=== PATIENT | male | born 1970 | race Two or more races ===

== ENCOUNTER 2023-04-07 10:05 | Inpatient (IN) | payer OTHER ==
[~2023-04-07] VITALS: Ht 175.3 cm; Wt 95.7 kg
== END 2023-04-18 11:24 | disposition home or self-care (01) | DRG 330 ==
LOC: SURG 04-13 07:20 → O/R 04-13 07:20 → SURG 04-13 09:15 → O/R 04-13 11:59 → SURG 04-13 18:55 → SURH 04-17 13:09
PROVIDERS: ADMIT Colon & Rectal Surgery; ATTEND Colon & Rectal Surgery
PROC: 0DTP4ZZ Resection of Rectum, Percutaneous Endoscopic Approach (ICD-10-PCS; 2023-04-13)
PROC: 07BB4ZZ Excision of Mesenteric Lymphatic, Percutaneous Endoscopic Approach (ICD-10-PCS; 2023-04-13)
PROC: 07BC4ZZ Excision of Pelvis Lymphatic, Percutaneous Endoscopic Approach (ICD-10-PCS; 2023-04-13)
PROC: 8E0W4CZ Robotic Assisted Procedure of Trunk Region, Percutaneous Endoscopic Approach (ICD-10-PCS; 2023-04-13)
PROC: 0D1B4Z4 Bypass Ileum to Cutaneous, Percutaneous Endoscopic Approach (ICD-10-PCS; principal; 2023-04-13 09:15)
DX: C20 Malignant neoplasm of rectum (principal); K92.1 Melena
CPT/HCPCS: 45397; 38570; 38571; 44187; S2900

== ENCOUNTER 2023-04-19 14:52 | Inpatient (IN) | payer OTHER ==
[~2023-04-19] VITALS: Ht 175.3 cm; Wt 95.3 kg
[2023-04-23] MEDS ORDERED: ZOFRAN8 MG PO (06:11)
[2023-04-23] MEDS ORDERED: PERCOCET 5-3251 EACH PO (06:11)
== END 2023-04-23 13:23 | disposition home or self-care (01) | DRG 641 ==
LOC: ER 14:52 → SURH 20:03
PROVIDERS: ADMIT Colon & Rectal Surgery; ATTEND Colon & Rectal Surgery
PROC: BW21YZZ Computerized Tomography (CT Scan) of Abdomen and Pelvis using Other Contrast (ICD-10-PCS; principal; 2023-04-19)
PROC: BW28ZZZ Computerized Tomography (CT Scan) of Head (ICD-10-PCS; 2023-04-19)
DX: E87.1 Hypo-osmolality and hyponatremia (principal); Z93.2 Ileostomy status; E86.0 Dehydration; N28.9 Disorder of kidney and ureter, unspecified

== ENCOUNTER 2023-08-26 07:13 | Outpatient (CLI) | payer OTHER ==
[~2023-08-26 07:13] MED LIST: PERCOCET 5-3251 EACH PO; ZOFRAN8 MG PO
== END 2023-08-26 07:29 | disposition home or self-care (01) ==
LOC: RX STUDY 07:13
PROVIDERS: ATTEND Colon & Rectal Surgery
DX: C20 Malignant neoplasm of rectum (principal)

== ENCOUNTER → 2023-11-16 | Day surgery (SDC) | payer OTHER | END | disposition home or self-care (01) | LOC: ADM 11-05 14:00 → AMB-ENDOS 06:00 | PROVIDERS: ATTEND Colon & Rectal Surgery | DX: C20 Malignant neoplasm of rectum (principal); Z98.0 Intestinal bypass and anastomosis status; Z20.822 Contact with and (suspected) exposure to COVID-19 ==

== ENCOUNTER 2023-12-29 10:45 | Inpatient (IN) | payer OTHER ==
[~2023-12-29] VITALS: Ht 175.3 cm; Wt 98.9 kg
[2024-01-05] MEDS ORDERED: CEFTRIAXONE SODIUM 2,000 MG VIAL ONE (11:58)
[2024-01-05] MEDS ORDERED: METRONIDAZOLE/SODIUM CHLORIDE 500 MG/100 ML PIGGYBACK IV ONE ×2 (11:58→17:45)
[2024-01-05] MEDS ORDERED: CEFTRIAXONE SODIUM 2,000 MG VIAL IV ONE (17:45)
[2024-01-05] MEDS ORDERED: RINGERS SOLUTION,LACTATED 1,000 ML IV SCH (18:30)
[2024-01-05] MEDS ORDERED: ONDANSETRON HCL 2 MG/ML VIAL IV PRN (18:30)
[2024-01-05] MEDS ORDERED: OxyCODONE HCL 5 MG TABLET (ROXICODONE) PO PRN (18:30)
[2024-01-05] MEDS ORDERED: INSULIN LISPRO 1,000 UNIT/10 ML UNITS SUBCUTANEO PRN (18:30)
[2024-01-05] MEDS ORDERED: MORPHINE SULFATE 4 MG/ML CARTRIDGE IV PRN (18:30)
[2024-01-05] MEDS ORDERED: DEXTROSE 50 % IN WATER 0.5 G/ML DISP.SYRIN IV PRN (18:30)
[2024-01-05] MEDS ORDERED: ENALAPRILAT DIHYDRATE 2.5 MG/2 ML VIAL IV ONE ×2 (18:42→18:45)
[2024-01-05] MEDS ORDERED: ENALAPRILAT DIHYDRATE 1.25 MG/ML VIAL IV ONE (18:43)
[2024-01-05] MEDS ORDERED: ACETAMINOPHEN 500 MG GEL..CAP PO SCH (20:00)
[2024-01-05] MEDS ORDERED: FAMOTIDINE/PF 20 MG/2 ML VIAL IV PUSH SCH (21:00)
[2024-01-05] MEDS ORDERED: SIMETHICONE 125 MG CAPSULE PO SCH (21:00)
[2024-01-05 21:52] LABS: HEMATOCRIT 43.8 % (39.0-48.0); HEMOGLOBIN 15.1 g/dL (13-16.00); MEAN CELL VOLUME 80.4 fL (80.0-100.00); MEAN CORPUSCULAR HEMOGLOBIN 27.7 pg (27.00-32.0); MEAN CORPUSCULAR HGB CONC 34.4 g/dl (32.0-36.0); PLATELET COUNT 242 K/uL (150-450); RED BLOOD COUNT 5.45 M/uL (4.00-6.00); RED CELL DISTRIBUTION WIDTH 14.2 % (11.5-14.5)
[2024-01-06] MEDS ORDERED: GABAPENTIN 300 MG CAPSULE PO ONE (00:23)
[2024-01-06] MEDS ORDERED: GABAPENTIN 300 MG CAPSULE PO SCH (01:00)
[2024-01-06] MEDS ORDERED: METOCLOPRAMIDE HCL 5 MG/ML VIAL IV SCH (01:00)
[2024-01-06] MEDS ORDERED: ACETAMINOPHEN 500 MG GEL..CAP PO ONE (01:19)
[2024-01-06] MEDS ORDERED: ENALAPRILAT DIHYDRATE 1.25 MG/ML VIAL IV ONE (01:50)
[2024-01-06] MEDS ORDERED: CELECOXIB 200 MG CAPSULE PO SCH (05:00)
[2024-01-06 05:29] LABS: HEMATOCRIT 43.6 % (39.0-48.0); MEAN CELL VOLUME 80.5 fL (80.0-100.00); MEAN CORPUSCULAR HEMOGLOBIN 27.7 pg (27.00-32.0); MEAN CORPUSCULAR HGB CONC 34.5 g/dl (32.0-36.0); PLATELET COUNT 229 K/uL (150-450); RED BLOOD COUNT 5.41 M/uL (4.00-6.00); RED CELL DISTRIBUTION WIDTH 14.1 % (11.5-14.5)
[2024-01-06 05:55] LABS: ALBUMIN 3.4 gm/dL (3.4-5.0); CALCIUM 9.1 mg/dL (8.5-10.1); CREATININE SERUM 1.61 mg/dL (0.70-1.30); GFR 45.29; PHOSPHOROUS 3.5 mg/dL (2.5-4.9); POTASSIUM 4.33 mEq/L (3.5-5.1)
[2024-01-06] MEDS ORDERED: LACTULOSE 20 G/30 ML BLIST.PACK PO SCH (09:00)
[2024-01-06] MEDS ORDERED: HYOSCYAMINE SULFATE 0.125 MG TAB.SUBL SL SCH (09:00)
[2024-01-06] MEDS ORDERED: LACTOBACILLUS ACIDOPHILUS 1 CAP CAP PO SCH (09:00)
[2024-01-06] MEDS ORDERED: POLYETHYLENE GLYCOL 3350 17 GM BLIST.PACK PO SCH (17:00)
[2024-01-06] MEDS ORDERED: ENOXAPARIN SODIUM 40 MG/0.4 ML SYRINGE SUBCUTANEO SCH (17:00)
[2024-01-06] MEDS ORDERED: ENALAPRILAT DIHYDRATE 1.25 MG/ML VIAL IV PRN (21:15)
[2024-01-07] MEDS ORDERED: ENOXAPARIN SODIUM 40 MG/0.4 ML SYRINGE SUBCUTANEO SCH (09:00)
== END 2024-01-07 12:05 | disposition home or self-care (01) | DRG 348 ==
LOC: O/R 01-05 07:55 → SURH 01-05 10:45 → SURG 01-05 19:56
PROVIDERS: ADMIT Colon & Rectal Surgery; ATTEND Colon & Rectal Surgery
PROC: 0DBB4ZZ Excision of Ileum, Percutaneous Endoscopic Approach (ICD-10-PCS; principal; 2024-01-05 11:00)
DX: Z43.2 Encounter for attention to ileostomy (principal); C20 Malignant neoplasm of rectum; K92.1 Melena; K91.89 Other postprocedural complications and disorders of digestive system; K56.7 Ileus, unspecified; K66.0 Peritoneal adhesions (postprocedural) (postinfection); K62.4 Stenosis of anus and rectum; R59.0 Localized enlarged lymph nodes